=== PATIENT | male | born 1940 | race Caucasian/White ===

== ENCOUNTER 2017-02-09 05:57 | Day surgery (SDC) | payer MEDICARE, OTHER ==
[2017-02-09] MEDS ORDERED: MIDAZOLAM INJ 2 MG/2 ML VIAL ONE (10:24)
[2017-02-09] MEDS ORDERED: TROP 1%/CYCLOPEN 1%/PHENYL 2% DROPS ONE (10:47)
[2017-02-09] MEDS: TOBRAMYCIN SULF 0.3 % OPHT SOL 1 DROP LEFT_EYE ONE ×2 (10:53→12:00)
[2017-02-09] MEDS: PROPARACAINE 0.5% OPHTH SOL 15 ML BTTL ONE ×2 (10:53→11:40)
[2017-02-09] MEDS ORDERED: LIDOCAINE 1% MPF 5 ML VIAL INJ ONE (11:46)
[2017-02-09] MEDS ORDERED: DEXAMETHASONE 0.1% OPHTH SOL 1 DROP LEFT_EYE ONE (12:00)
[2017-02-09] MEDS ORDERED: BRIMONIDINE 0.2% OPHTH DROPS LEFT_EYE ONE (12:01)
[2017-02-09 15:53] VITALS: O2SAT 97
[2017-02-09 16:01] VITALS: BP 137/78; TEMP 98.6
== END 2017-02-09 12:45 | disposition home or self-care (01) ==
LOC: AMB 05:57
PROVIDERS: ATTEND Ophthalmology
DX: H25.12 Age-related nuclear cataract, left eye (principal)
CPT/HCPCS: 66984; J2250

== ENCOUNTER 2018-12-02 10:04 | Observation (INO) | payer MEDICARE, OTHER ==
[2018-12-02] MEDS ORDERED: SODIUM CHLORIDE 0.9% 1000ML 1,000 ML IVS ONE (10:17)
[2018-12-02] MEDS ORDERED: ALUM & MAG HYDROX-SIMETHICONE 30 ML, LIDOCAINE VISCOUS 2% 15 ML PO ONE ×2 (10:18)
[2018-12-02] MEDS ORDERED: ONDANSETRON INJ 4 MG/2 ML VIAL IV ONE (10:18)
[2018-12-02] MEDS ORDERED: LIDOCAINE HCL 2% (MOUTH-THROAT) 15 ML UD ONE (10:36)
[2018-12-02] MEDS ORDERED: ALUM & MAG HYDROX-SIMETHICONE 30 ML UD ONE (10:36)
--- NOTE | 2018-12-02 11:02 | RAD ---
EXAM DESCRIPTION: Abdomen Series CLINICAL HISTORY: 78 years Male, nv 5 days COMPARISON: None. Findings: Number of images: 3 Location: abdomen Nonobstructive bowel gas pattern. No suspicious calcification. No acute osseous abnormalities. . Large stool volume. Large hiatal hernia. Small right pleural effusion with adjacent airspace disease. Right midlung atelectasis. IMPRESSION: Nonobstructive bowel gas pattern. Large hiatal hernia. Small right pleural effusion with adjacent airspace disease. Electronically signed by: Benjamin Lizama MD 12/02/2018 11:00 AM CDT
[2018-12-02] MEDS ORDERED: PROMETHAZINE HCL INJ 25 MG in SODIUM CHLORIDE 0.9% 50ML 50 ML IVPB ONE (13:40)
--- NOTE | 2018-12-02 13:44 | ED.PDOC ---
History of Present Illness - General Chief Complaint: GI Problem Stated Complaint: Vomiting x 5 days Time Seen by Provider: 12/02/18 10:17 Source: patient Exam Limitations: no limitations - History of Present Illness Initial Comments: The patient is an 78-year-old male presenting to the emergency room secondary to nausea and vomiting that has been intermittent over the last week. He averages 4-5 episodes of vomiting per day. No real chest pain or abdominal pain. No fever. No diarrhea. He has had some constipation. No syncope or near syncope. He does feel that he is a little bit dehydrated. He has had some reflux issues in the past but has not taken any stomach medications in the past. He does not see a doctor or take any routine medications. Timing/Duration: 1 week Severity: moderate Improving Factors: nothing Worsening Factors: eating Associated Symptoms: loss of appetite, malaise, nausea/vomiting Allergies/Adverse Reactions: Allergies NO KNOWN ALLERGY Allergy (Verified 02/09/17 10:57) Home Medications: Ambulatory Orders NK 02/19/17 Review of Systems - Review of Systems Constitutional: States: no symptoms reported EENTM: States: no symptoms reported Respiratory: States: no symptoms reported Cardiology: States: no symptoms reported Gastrointestinal/Abdominal: States: see HPI Genitourinary: States: no symptoms reported Musculoskeletal: States: no symptoms reported Skin: States: no symptoms reported Neurological: States: no symptoms reported Endocrine: States: no symptoms reported All other Systems: No Change from Baseline Past Medical History (General) - Patient Medical History Hx Stroke: No Hx Congestive Heart Failure: No Hx Diabetes: No Hx MRSA: No - Vaccination History Hx Influenza Vaccination: No Hx Pneumococcal Vaccination: No - Social History Hx Tobacco Use: No Hx Alcohol Use: No - Triage Comment ED Triage Comment: Pt did attempt to see his PCP, but they sent him here for evaluation. Family Medical History - Family History Father Family History: No Known Living Status: Physical Exam - Physical Exam General Appearance: Alert, Comfortable, No apparent distress Eye Exam: bilateral normal Ears, Nose, Throat: hearing grossly normal - mild chronic hearing loss, normal ENT inspection Neck: full range of motion, supple Respiratory: lungs clear, normal breath sounds, no respiratory distress, no accessory muscle use Cardiovascular/Chest: normal peripheral pulses, regular rate, rhythm, no edema Peripheral Pulses: radial,right: 2+, radial,left: 2+, dorsalis pedis,right: 2+, dorsalis pedis,left: 2+ Gastrointestinal/Abdominal: non tender - no rebound or peritoneal signs. No palpable mass., soft Rectal Exam: deferred Back Exam: no CVA tenderness, no vertebral tenderness Extremity: normal range of motion, non-tender, normal inspection, no pedal edema, normal capillary refill Neurologic: ssn/ssbn assistant navigator II-XII nml as tested, alert, normal mood/affect, oriented x 3 Skin Exam: normal color Comments: Vital Signs - 24 hr 12/02/18 12/02/18 12/02/18 10:13 11:12 11:14 Temperature 98.1 F Pulse Rate [ 68 62 Left Radial] Respiratory 18 20 Rate Blood Pressure 121/73 117/63 [Right Arm] O2 Sat by Pulse 96 87 L 90 L Oximetry 12/02/18 12/02/18 12:14 13:00 Temperature Pulse Rate [ 63 68 Left Radial] Respiratory 20 16 Rate Blood Pressure 141/82 129/73 [Right Arm] O2 Sat by Pulse 93 L 95 Oximetry Progress - Progress Progress: 12/02/18 13:47 The patient is an 78-year-old male presenting to emergency room secondary to intermittent nausea and vomiting over the last week. I believe that the patient is likely caught the local gastroenteritis. He has received a liter of IV fluids. He is still having some recurrent nausea even after the dose of Zofran so he is being given a dose of Phenergan. Due to the patient's advanced age I do want the patient put in overnight to help control symptoms and make sure that he remains hydrated. Symptoms are likely being complicated by a large hiatal hernia. The patient will likely need acid reducing medications. Additionally the patient is having some periodic episodes of hypoxia here with oxygen saturations dropping down to about 82%. At this point I believe they are largely correlated with him holding his breath when he gets nauseated. I would also like to have him monitored overnight on pulse oximetry to make sure this is nothing more significant. Telemetry monitoring is showing a normal sinus rhythm. Admit for continued care and monitoring. 12/02/18 13:50 shanthi cox [id number] - Results/Orders Results/Orders: x-ray abdomen shows a large hiatal hernia. There is moderate stool. Obvious obstruction. No free air. 12/02/18 12:39 Telemetry .CONTINUOUS 12/02/18 12:54 Oxygen Delivery Assessment: QSHIFT 12/02/18 13:40 Promethazine HCl Inj [Phenergan Inj] 25 mg Sodium Chloride 0.9% 50Ml [NS 50ml] 50 ml IVPB ONCE 12/03/18 09:00 Oxygen Daily Laboratory Results - last 24 hr 12/02/18 12/02/18 12/02/18 10:33 10:33 10:50 WBC 8.4 RBC 4.65 L Hgb 10.9 L Hct 34.9 L MCV 75.0 L MCH 23.5 L MCHC 31.3 L RDW 19.9 H Plt Count 295 MPV 7.3 L Absolute Neuts (auto) 6.90 H Absolute Lymphs (auto) 0.60 L Absolute Monos (auto) 0.80 Absolute Eos (auto) 0.00 Absolute Basos (auto) 0.00 Neutrophils % 82.1 H Lymphocytes % 7.6 L Monocytes % 9.8 H Eosinophils % 0.1 L Basophils % 0.4 RBC Morphology 2+hypochromia Sodium 138 Potassium 3.5 L Chloride 98 L Carbon Dioxide 28 Anion Gap 15.5 BUN 44 H Creatinine 0.97 BUN/Creatinine Ratio 45.4 H Random Glucose 133 H Serum Osmolality 288.8 Calcium 9.4 Magnesium 2.1 Total Bilirubin 0.6 AST 30 ALT 21 Alkaline Phosphatase 65 Creatine Kinase 82 CK-MB (CK-2) 3.2 CK-MB (CK-2) % Not Reportable Troponin I < 0.02 B-Natriuretic Peptide 59.1 Serum Total Protein 7.2 Albumin 3.4 Globulin 3.8 H Albumin/Globulin Ratio 0.9 L Amylase 81 Urine Color Dk yellow Urine Appearance Sl cloudy Urine pH 6.0 Ur Specific [place] 1.020 Urine Protein Trace Urine Glucose (UA) Negative Urine Ketones Negative Urine Blood Trace-intact H Urine Nitrite Negative Urine Bilirubin Small H Urine Urobilinogen 1.0 Ur Leukocyte Esterase Negative Urine RBC 0-1 Urine WBC 0-1 Ur Epithelial Cells 0 Urine Bacteria 0 Urine Mucus Trace Departure - Departure Clinical Impression: Hypoxic episode, Gastroenteritis, Mild dehydration, Advanced age, Hiatal hernia with GERD and esophagitis Disposition: Admit Patient Departure Forms: ED Discharge - Pt. Copy, Patient Portal Self Enrollment Referrals: Will Tom III, MD [Primary Care Provider] - 1-2 Weeks Home Medications: Ambulatory Orders NK 02/19/17 Decision To Admit - Decistion To Admit Decision to Admit Reason: Medical Nature Decision to Admit Date: 12/02/18 Decision to Admit Time: 13:50
[2018-12-02] MEDS ORDERED: PROMETHAZINE HCL INJ 25 MG/ML VIAL ONE (14:09)
[2018-12-02] MEDS ORDERED: SODIUM CHLORIDE 0.9% 50ML 50 ML ONE (14:10)
[2018-12-02] MEDS: MAGNESIUM HYDROXIDE 30 ML UD PO ONE ×2 (14:11→19:53)
--- NOTE | 2018-12-02 14:21 | HP ---
SUPERVISING PHYSICIAN: Antolin Ly M.D. CHIEF COMPLAINT: Nausea and vomiting. HISTORY OF PRESENT ILLNESS: This is an 78 year-old male patient who has lived in [place] for 55 years. He has no significant medical history. In the last few months he has been transitioning with a move to [place] where his son lives. They happen to be back in [place] to finish up selling his home. About a week ago he started having some abdominal pain with some nausea and vomiting. The pain is primarily in the epigastric and the left upper quadrant. He has averaged about 4 to 5 episodes of vomiting daily over the last 5 to 6 days. There are no complaints of any chest pain or fever. He has had no diarrhea. He does have some constipation problems. He was recently diagnosed with bipolar disorder and is on Depakote and Risperdal. In the Emergency Room, his initial vital signs showed temperature 98.1, heart rate 68, blood pressure 121/73, respiratory rate 18, O2 sat 96% on room air. It was noticed that when he went to sleep his oxygen saturations dropped into the mid 80s. His lab studies showed a WBC of 8.4 with hemoglobin 10.9 and hematocrit 34.9. He had a left shift on his differential with neutrophils at 82.1. Chemistries showed sodium 138, potassium 3.5, chloride 98, carbon dioxide 28, BUN 44, creatinine 0.97, glucose 133. Liver enzymes were within normal limits. Cardiac enzymes were negative. Urinalysis was unremarkable. Abdominal x-ray showed nonobstructive bowel gas pattern with a large hiatal hernia and a large stool volume. He was given some fluids in the Emergency Room as well as some Zofran and some Phenergan. I was called for hospital admission. PAST MEDICAL HISTORY: 1. Bipolar disorder. 2. Gastroesophageal reflux disease. 3. Hiatal hernia. PAST SURGICAL HISTORY: 1. Transurethral resection of the prostate. OUTPATIENT MEDICATIONS: 1. Depakote. 2. Risperdal. ALLERGIES: NO KNOWN DRUG ALLERGIES. SOCIAL HISTORY: He lives in [place] but is planning a move to live with his son in [place]. He denies any tobacco, ETOH or illicit drug use. REVIEW OF SYSTEMS: GENERAL: Negative for fatigue, fever or weight changes. HEENT: Negative for sinus symptoms, ear pain, vision changes or sore throat. RESPIRATORY: Negative for coughing, wheezing or shortness of breath. CARDIAC: Negative for chest pain, palpitations or tachycardia. GASTROINTESTINAL: As per the History of Present Illness. GENITOURINARY: Negative for hematuria, dysuria or polyuria. MUSCULOSKELETAL: Negative for arthralgias or myalgias. SKIN: Negative for lesions or rashes. NEUROLOGIC: Negative for headaches, dizziness or seizures. PSYCHIATRIC: Positive for mild bipolar disorder. Negative for anxiety. PHYSICAL EXAMINATION: VITAL SIGNS: temperature 98.8, heart rate 56, blood pressure 153/67, respiratory rate 18, O2 sat 93%. GENERAL: This is a thin 78 year-old male patient who is lying in his hospital bed. He is in no acute distress. HEENT: Normocephalic and atraumatic. Pupils are equal and reactive. Oropharynx is clear. NECK: Supple without mass. RESPIRATORY: Essentially clear to auscultation bilaterally. CHEST: There is equal rise and fall of the chest with inspiration and expiration. CARDIOVASCULAR: Regular rate and rhythm. GASTROINTESTINAL: Abdomen is soft. It is mildly tender to the epigastric and left upper quadrant. There is no rebound tenderness or guarding. Bowel sounds are hypoactive. EXTREMITIES: No clubbing, cyanosis or edema. NEUROLOGIC: He is awake, alert and oriented times three. Cranial nerves II-XII are grossly intact. SKIN: Warm and dry. LABORATORY: Labs and films are as per the History of Present Illness. ASSESSMENT: 1. Abdominal pain with nausea, vomiting and dehydration secondary to gastroenteritis. 2. Severe constipation. 3. Hiatal hernia. 4. Gastroesophageal reflux disease. 5. Mild bipolar disorder. 6. Possible sleep apnea with oxygen saturations dropping into the mid 80s when the patient sleeps. PLAN: The patient has been placed in observation. He will be on bowel rest and will be NPO. I have started him on Lovenox for DVT prophylaxis and a PPI for ulcer prophylaxis. In the morning, will do an abdominal sonogram as well as a CT of the abdomen. Will advance his diet as tolerated. I may need to consult Dr. Zepeda or Dr. Ye due to the hiatal hernia and the constipation. He will also have antiemetics. I have ordered a Fleets enema tonight and as soon as his diet is advanced we will restart his home medications as well as give him some Milk of Magnesia. On discharge, back in [place] he will need to have a sleep apnea study done, and I spoke to his son at length about followup testing. I have ordered some routine lab for in the morning. His IV fluids have some potassium in it. Will continue to monitor closely and follow as needed. #[id number] [facility]
[2018-12-02] MEDS ORDERED: PROMETHAZINE HCL INJ 25 MG in SODIUM CHLORIDE 0.9% 50ML 50 ML IVPB PRN (14:52)
[2018-12-02] MEDS ORDERED: ONDANSETRON INJ 4 MG/2 ML VIAL IV PRN (14:52)
[2018-12-02] MEDS ORDERED: SODIUM CHLORIDE 0.9% (FLUSH) 10 ML SYG IV PRN (14:54)
[2018-12-02] MEDS ORDERED: IV SET AND CAP CHANGE INJ INJ SCH (15:00)
[2018-12-02] MEDS ORDERED: SODIUM PHOS/BIPHOS ENEMA ADULT 133 ML BTTL PR ONE (18:46)
[2018-12-02] MEDS: PANTOPRAZOLE SODIUM IV 40 MG VIAL IV SCH (19:51)
[2018-12-02] MEDS: KCL 20MEQ/D5 1/2NS 1,000 ML IVS PRN (19:52)
[2018-12-02] MEDS ORDERED: ENOXAPARIN SODIUM 40 MG/0.4 ML SYG SUBCU SCH (21:00)
[2018-12-02] MEDS: SODIUM CHLORIDE 0.9% (FLUSH) 10 ML SYG IV SCH (21:03)
[2018-12-03] MEDS: KCL 20MEQ/D5 1/2NS 1,000 ML IVS PRN ×2 (01:21→10:10)
--- NOTE | 2018-12-03 06:48 | RAD ---
EXAM: XR Abdomen, 2 Views CLINICAL HISTORY: The patient is 78 years old and is Male; constipation; n/v/abd pain TECHNIQUE: Frontal view of the abdomen/pelvis with upright view of the abdomen. COMPARISON: Abdomen radiograph December 02, 2018. FINDINGS: INTRAPERITONEAL SPACE: No free air. GASTROINTESTINAL TRACT: A moderate amount stool is present within the right colon. No dilated loops of bowel are seen. Distal air is present. No abnormal calcifications or soft tissue masses are seen. BONES/JOINTS: There are degenerative changes of the bones. IMPRESSION: Moderate stool burden without obstruction. Electronically signed by: Lorena Bradley MD 12/03/2018 6:47 AM CDT
--- NOTE | 2018-12-03 06:50 | RAD ---
EXAM: XR Chest, 1 View CLINICAL HISTORY: The patient is 78 years old and is Male; constipation; n/v/abd pain; low O2 sats TECHNIQUE: Frontal view of the chest. COMPARISON: Chest radiograph December 02, 2018. FINDINGS: LUNGS: Patchy opacities within the lower lobes is noted. PLEURAL SPACE: Unremarkable. No pneumothorax. HEART: The heart is enlarged. MEDIASTINUM: A moderate sized hiatal hernia is present. BONES/JOINTS: Unremarkable. VASCULATURE: Mild prominence of the central vasculature is present. IMPRESSION: Findings suggestive of mild venous congestion and likely bilateral lower lobe atelectasis. Electronically signed by: Lorena Bradley MD 12/03/2018 6:48 AM CDT
[2018-12-03] MEDS ORDERED: MAGNESIUM HYDROXIDE 30 ML UD PO ONE ×2 (08:53→15:31)
[2018-12-03] MEDS: SODIUM CHLORIDE 0.9% (FLUSH) 10 ML SYG IV SCH (09:27)
--- NOTE | 2018-12-03 10:14 | US ---
EXAM DESCRIPTION: Abdomen,Complete CLINICAL HISTORY: abd pain COMPARISON: None Available. TECHNIQUE: Complete abdominal ultrasound FINDINGS: Limited visualization due to overlying air in the stomach and other bowel gas. Normal caliber of the aorta. Normal appearance of the inferior vena cava. Cyst in the right lobe of the liver appears benign measuring 1.7 cm. Two adjacent cyst or small septate cyst 1.3 cm also in the right lobe with benign appearance. Liver parenchyma is otherwise homogeneous in texture with normal echogenicity. No liver mass or intrahepatic bile duct dilatation. No liver surface irregularity. Normal appearance of hepatic veins and portal vein. Gallbladder appears normal with no intraluminal stones. No gallbladder wall thickening. Common bile duct is normal in caliber measuring 3.8 mm. The right kidney measures 9.9 cm in length. Normal renal cortical echogenicity. The renal cortical thickness appears normal. No right renal mass, shadowing stone or cyst. There is no hydronephrosis. Spleen is normal in size. No focal splenic lesion. The left kidney measures 12 cm in length. Normal renal cortical echogenicity. The renal cortical thickness appears normal. No left renal mass, shadowing stone or cyst. There is no hydronephrosis. IMPRESSION: Benign-appearing liver cysts. Otherwise unremarkable sonographic examination of the upper abdomen. Electronically signed by: Jaya Cody MD 12/03/2018 10:12 AM CDT
[2018-12-03 11:04] VITALS: TEMP 97.6
--- NOTE | 2018-12-03 11:10 | CT ---
EXAM DESCRIPTION: Abdoment/Pelvis w/o Contrast CLINICAL HISTORY: 78 years Male, abd pain;n/v TECHNIQUE: This exam was performed according to our departmental dose-optimization program, which includes automated exposure control, adjustment of the mA and/or kV according to patient size and/or use of iterative reconstruction technique. COMPARISON: December 03, 2018 FINDINGS: Small bilateral pleural effusions with adjacent atelectasis. Coronary artery calcifications. Large hiatal hernia with organoaxial rotation morphology. There is an indistinct hypoattenuating left hepatic lobe mass measuring at least 3.7 x 3.8 cm series. Indistinct hepatic dome mass, which is not measurable series 2 image 32. There is a separate and distinct left hepatic lobe lesion series 2 image 41 There are other small scattered hypoattenuating liver lesions, some of which are cysts, some of which are indeterminate. The gallbladder is unremarkable. The, pancreas and right adrenal gland are unremarkable. Left adrenal adenoma measuring 1.3 cm. Right renal cyst. Normal renal contours. No hydronephrosis or urolithiasis. The prostate is enlarged. The bladder is decompressed. No evidence of bowel obstruction. No evidence of bowel inflammation. Normal appendix. No adenopathy. Normal caliber abdominal aorta. Findings concerning for peritoneal carcinomatosis. For reference there is a left omental nodule measuring 8 mm series 2 image 99. There are separate left lower quadrant peritoneal nodules for reference left lower quadrant measuring 7 mm series 2 image 112. Trace ascites. Small indeterminate gas foci in the left rectus sheath, for reference series 2 image 110. Indeterminate focus of gas in the IVC series 2 image 96. T12 anterior wedge compression deformity, chronic. No acute fracture. IMPRESSION: 1. Findings concerning for multifocal hepatic metastatic disease. 2. Small bilateral pleural effusions with adjacent atelectasis. 3. Indeterminate small gas foci of the left rectus sheath and IVC. This is an indeterminate finding, although it can be seen with peripheral IV use, ischemia and infection are felt less likely. 4. Large hiatal hernia with organoaxial rotation. 5. Findings concerning for peritoneal carcinomatosis with trace ascites. 6. Enlarged prostate. Findings discussed with the Nelsy MEJIA at 11:05 AM 12/03/2018 Electronically signed by: Benjamin Lizama MD 12/03/2018 11:09 AM CDT
[2018-12-03 13:57] VITALS: BP 136/74; O2SAT 97
[2018-12-03] MEDS: PANTOPRAZOLE SODIUM IV 40 MG VIAL IV SCH (14:53)
--- NOTE | 2018-12-03 20:31 | DS ---
SUPERVISING PHYSICIAN: Antolin Ly M.D. DISCHARGE DIAGNOSIS: 1. Abdominal pain with nausea, vomiting and dehydration secondary to gastroenteritis that has mostly resolved. 2. CT findings concerning for multifocal hepatic metastatic disease. 3. Severe constipation that has slightly improved. 4. Hiatal hernia. 5. Gastroesophageal reflux disease. 6. Mild bipolar disorder. 7. Possible sleep apnea with oxygen saturations dropping into the mid 80s when the patient sleeps. HISTORY OF PRESENT ILLNESS: This is an 78 year-old male patient who has lived in [place] for 55 years. There is no significant medical history. In the last few months he has been transitioning with a move to [place] where his son lives. They happen to be back in [place] to finish up selling his home. About a week ago he started having some abdominal pain with some nausea and vomiting. The pain was primarily in the epigastric and the left upper quadrant. He averaged about 4 to 5 episodes of vomiting daily over the last 5 to 6 days. There were no complaints of chest pain or fever. There was no diarrhea. He does have some constipation problems. He was recently diagnosed with bipolar disorder and is on Depakote and Risperdal. In the Emergency Room, his initial vital signs showed temperature 98.1, heart rate 68, blood pressure 121/73, respiratory rate 18, O2 sat 96% on room air. It was noticed that when he went to sleep his O2 saturations dropped into the mid 80s. His lab studies showed a WBC of 8.4 with hemoglobin 10.9 and hematocrit 34.9. He had a left shift on his differential with neutrophils at 82.1. Chemistries showed sodium 138, potassium 3.5, chloride 98, carbon dioxide 28, BUN 44, creatinine 0.97, glucose 133. Liver enzymes were within normal limits. Cardiac enzymes were negative. Urinalysis was unremarkable. Abdominal x-ray showed nonobstructive bowel gas pattern with a large hiatal hernia and a large stool volume. He was given some fluids in the Emergency Room as well as some Zofran and Phenergan. He was admitted to the hospital in observation. HOSPITAL COURSE: The patient was placed on bowel rest as well as made NPO. He got IV fluids as well as antiemetics. His diet was advanced and he tolerated it without any problems. He had an abdominal sonogram done as well as a CT of the abdomen and there were concerns in the CT for metastatic liver disease. I spoke with the son at length and I did speak some to the patient. The patient got slightly confused with the results of the CT scan, so after discussing with his son he and his sister would discuss his plan of care and if they decided to seek treatment or further testing, he would do it in [place] when his father moved back there with him. He was also given a Fleets enema with a small amount of stool results. This morning he was given Milk of Magnesia again with a small amount of results and he was given an addition dosing of Milk of Magnesia. I spoke to his son at length that the patient needed followup and he should continue with MiraLAX daily as well as he will need another 2 additional days of Milk of Magnesia until he gets a good clean out. I have also recommended that he do a sleep apnea study. Labs and testing are as per the history of present illness. FOLLOWUP LABORATORY: WBC of 7.1 with hemoglobin 9.9, hematocrit 32. CMP was basically unremarkable. RADIOLOGY: Abdominal ultrasound showed a benign appearing liver cyst, otherwise unremarkable sonographic examination of the upper abdomen. Abdomen and pelvis CT showed: 1. Findings concerning for multifocal hepatic metastatic disease. 2. Small bilateral pleural effusions with adjacent atelectasis. 3. Indeterminate small gas foci of the left rectus sheath and IVC. This is an indeterminate finding although it can be seen with peripheral IV use. Ischemia and infection are far less likely. 4. Large hiatal hernia with organoaxial rotation. 5. Findings concerning for peritoneal carcinomatosis with trace ascites. 6. Enlarged prostate. Chest x-ray showed findings suggestive of mild venous congestion and likely bilateral lobe atelectasis. Abdominal x-ray showed moderate stool burden without obstruction. DISCHARGE PLAN: The patient will be discharged home in stable condition. He is to resume his previous diet and activity as tolerated. He is to followup with his primary care physician within 1 to 2 weeks. In addition to his routine medications, he is to take 17 grams of MiraLAX daily. The patient has received a copy of his lab results as well as a disc for a CT and abdominal sonogram results. It is recommended that he get a workup from his primary care physician for the possible metastatic liver disease as well as a sleep apnea test. He is to return to the hospital or followup with his primary care physician for any problems or complications. #[id number] [facility]
== END 2018-12-03 16:45 | disposition home or self-care (01) ==
LOC: ER 10:04 → MS 14:20
PROVIDERS: ADMIT Nurse Practitioner Acute Care; ATTEND Nurse Practitioner Acute Care
DX: K52.9 Noninfective gastroenteritis and colitis, unspecified (principal); E86.0 Dehydration; K59.00 Constipation, unspecified; K44.9 Diaphragmatic hernia without obstruction or gangrene; K21.0 Gastro-esophageal reflux disease with esophagitis; F31.9 Bipolar disorder, unspecified; R09.02 Hypoxemia; N40.0 Benign prostatic hyperplasia without lower urinary tract symptoms; K76.89 Other specified diseases of liver; J90 Pleural effusion, not elsewhere classified; J98.11 Atelectasis; Z79.899 Other long term (current) drug therapy
CPT/HCPCS: 96361 ×2; 96365; 96375; 96376; 96372; J2405 ×2; J2550; J7030; A4216; J1650; 82553; 80053 ×2; 36415 ×2; 82150; 81001; 85025 ×2; 82550; 83735; 84484; 83880; 74019 ×2; 71045; 74176; 76700; 94760 ×2; 99285